=== PATIENT | male | born 1970 | race Hispanic/Latino ===

== ENCOUNTER 2017-11-26 12:12 | Inpatient (IN) | payer OTHER ==
[~2017-11-26] VITALS: Ht 170.2 cm; Wt 89.8 kg
--- NOTE | 2017-11-26 12:34 | ED GENERAL ADULT ---
History of Present Illness General Chief Complaint: General Adult Stated Complaint: ? DIABETES/WAKNESS Source: patient, family, old records Exam Limitations: no limitations Vital Signs & Intake/Output Vital Signs & Intake/Output Vital Signs Date Time Temp Pulse Resp B/P B/P Pulse O2 O2 Flow FiO2 Mean Ox Delivery Rate 11/26 1342 107 18 148/87 95 Room Air 11/26 1251 Room Air 11/26 1221 98.9 125 16 142/89 95 Room Air Allergies Coded Allergies: No Known Allergies (11/26/17) Reconcile Medications Amlodipine Besylate 5 MG TABLET 1 TAB PO QAM BP (Reported) Atorvastatin Calcium 10 MG TABLET 1 TAB PO QPM CHOLESTEROL (Reported) Hydrochlorothiazide 12.5 MG TABLET 1 TAB PO DAILY DIURETIC (Reported) Losartan Potassium 50 MG TABLET 1 TAB PO QAM BP (Reported) Metformin HCl 500 MG TABLET 1 TAB PO BID DM (Reported) Triage Note: PT HAS BEEN FEELIN WEAK AND URINATING A LOT. PT IS DIABETIC AND HAS BEEN TAKING HIS MEDS. PT IS ONLY PO MEDS. PT STATES HE DOES NOT CHECK HIS SUGARS. Triage Nurses Notes Reviewed? yes HPI: Patient presents with a weeklong history of increasing weakness and fatigue in the setting of polyuria and polydipsia. Patient is a diabetic but does not have a glucometer at home. Patient states he has been taking his medications. Patient states he has no appetite but does feel thirsty all of the time. Patient denies any chest pain. Patient states that he is now getting lightheaded when he is up walking around. He denies any room spinning dizziness. There is no nausea or vomiting. There are no fevers or chills. Past History Travel History Traveled to [place] past 21 day No Medical History Any Pertinent Medical History? see below for history Cardiovascular: hypertension Endocrine: diabetes Surgical History Surgical History: non-contributory Psychosocial History What is your primary language Korean Tobacco Use: Never used ETOH Use: denies use Illicit Drug Use: denies illicit drug use Family History Hx Contributory? No Review of Systems Review of Systems Constitutional: Reports: see HPI, weakness. EENTM: Reports: no symptoms. Respiratory: Reports: no symptoms. Cardiovascular: Reports: no symptoms. GI: Reports: no symptoms. Genitourinary: Reports: see HPI, frequency. Musculoskeletal: Reports: no symptoms. Skin: Reports: no symptoms. Neurological/Psychological: Reports: no symptoms. Hematologic/Endocrine: Reports: no symptoms. Immunologic/Allergic: Reports: no symptoms. All Other Systems: Reviewed and Negative Physical Exam Physical Exam General Appearance: well developed/nourished, alert, awake, anxious, moderate distress Head: atraumatic, normal appearance Eyes: Bilateral: PERRL, EOMI. Ears, Nose, Throat: normal pharynx, DRY MUCOSA Neck: normal inspection, supple, full range of motion Respiratory: normal breath sounds, chest non-tender, no respiratory distress, lungs clear Cardiovascular: regular rate/rhythm, normal peripheral pulses Gastrointestinal: normal bowel sounds, soft, non-tender, no organomegaly Back: normal inspection, normal range of motion Extremities: normal inspection, normal capillary refill, normal range of motion, no edema Neurologic/Psych: no motor/sensory deficits, awake, alert, oriented x 3, normal gait, normal mood/affect Skin: intact, normal color, warm/dry Core Measures ACS in differential dx? No CVA/TIA Diagnosis: No Sepsis Present: No Sepsis Focused Exam Completed? No Progress Differential Diagnoses I considered the following diagnoses in my evaluation of the patient: [ Hyperglycemia, dehydration, electrolyte abnormality] Plan of Care: Orders Procedure Date/time Status Heart Healthy Diet 11/26 D Active LACTIC ACID 11/26 1521 Active ED Holding Orders 11/26 1355 Active Admit to inpatient 11/26 1355 Active Vital Signs 11/26 1355 Active Code Status 11/26 1355 Active SERUM OSMOLALITY 11/26 1241 Complete ACETONE 11/26 1241 Complete MIXED VENOUS BLOOD GAS (GEN) 11/26 1223 Complete FingerStick- Glucose 11/26 1221 Active URINALYSIS 11/26 1221 Complete TROPONIN LEVEL 11/26 1221 Complete LACTIC ACID 11/26 1221 Complete COMPREHENSIVE METABOLIC PANEL 11/26 1221 Complete CBC WITHOUT DIFFERENTIAL 11/26 1221 Complete EKG 11/26 1221 Active Current Medications Sig/Reji Start time Last Medication Dose Stop Time Status Admin Sodium Chloride 1,000 ML BOLUS ONE 11/26 1400 AC (Normal Saline 0.9%) 11/26 1459 Sodium Chloride 1,000 ML BOLUS ONE 11/26 1345 AC 11/26 (Normal Saline 0.9%) 11/26 1444 1355 Laboratory Tests 11/26/17 1242: Bicarbonate Actual 26, Mixed VBG pH 7.34, Mixed VBG pCO2 49, Mixed VBG O2 Saturation 44, Carboxyhemoglobin 1.1 L, O2 Concentration % RA, Phlebotomy Draw Site LAC 11/26/17 1241: Serum Osmolality Cancelled, Acetone Level Cancelled 11/26/17 1241: Anion Gap 21 H, Estimated GFR > 60, BUN/Creatinine Ratio 17.3, Glucose 1221 *H, Serum Osmolality 353 H, Lactic Acid 4.4 H, Calcium 10.4 H, Total Bilirubin 0.5, AST 21, ALT 47, Alkaline Phosphatase 202 H, Troponin I < 0.01, Total Protein 7.6, Albumin 4.5, Globulin 3.1, Albumin/Globulin Ratio 1.5, Acetone Level NEGATIVE, Urine Color YEL, Urine Clarity CLEAR, Urine pH 6.0, Ur Specific [place] <= 1.005, Urine Protein NEG, Urine Ketones NEG, Urine Nitrite NEG, Urine Bilirubin NEG, Urine Urobilinogen 0.2, Ur Leukocyte Esterase NEG, Ur Microscopic EXAM NOT REQUIRED, Urine Hemoglobin NEG, Urine Glucose >=1000 H 11/26/17 1221: CBC w Diff NO MAN DIFF REQ, RBC 5.65, MCV 83.8, MCH 27.0, MCHC 32.2 L, RDW 13.8 , MPV 10.2, Gran % 84.8 H, Lymphocytes % 13.2 L, Monocytes % 1.8, Eosinophils % 0.2, Basophils % 0, Absolute Granulocytes 10.2 H, Absolute Lymphocytes 1.6, Absolute Monocytes 0.2, Absolute Eosinophils 0, Absolute Basophils 0 Initial ED EKG: SINUS TACHYCARDIA, NONSPECIFIC st-t CHANGES. Prior EKG: unchanged Departure Departure Disposition: STILL A PATIENT Condition: Stable Clinical Impression Primary Impression: Hyperglycemia Secondary Impressions: Lactic acidosis Departure Forms: Customer Survey General Discharge Information Admission Note Spoke With: Jael RIBEIRO,Amir Documentation of Exam: Documentation of any treatments & extenuating circumstances including Concerns Regarding Discharge (functional status, medication knowledge or non-compliance, living conditions, etc.) that warrant an admission rather than observation: [IV FLUIDS, ENDOCRINE CONSULT, HOLD METFORMIN, INSULIN] Critical Care Note Critical Care Note Critical Care Time: mins: (45 MIN)
[2017-11-26 13:15] LABS: ABSOLUTE BASOPHIL COUNT 0 /CUMM (0.0-0.2); ABSOLUTE EOSINOPHIL COUNT 0 /CUMM (0.0-0.7); ABSOLUTE GRANULOCYTE CT 10.2 /CUMM (1.4-6.5); ABSOLUTE LYMPH COUNT 1.6 /CUMM (1.2-3.4); ABSOLUTE MONOCYTE COUNT 0.2 /CUMM (0.10-0.60); BASOPHIL % 0 % (0.0-2.0); EOSINOPHIL % 0.2 % (0-5); GRANULOCYTE % 84.8 % (42.2-75.2); HEMATOCRIT 47.3 % (42-52); MEAN CORPUSCULAR HGB CONC 32.2 G/DL (33.0-37.0); MEAN CORPUSCULAR VOLUME 83.8 FL (80.0-94.0); MEAN PLATELET VOLUME 10.2 FL (7.4-10.4); PLATELET COUNT 417 /CUMM (130-400); RBC DISTRIBUTION WIDTH 13.8 % (11.5-14.5); RED BLOOD CELL CT 5.65 /CUMM (4.70-6.10); WHITE BLOOD CELL COUNT 12.1 /CUMM (4.8-10.8)
[2017-11-26] MEDS ORDERED: LOSARTAN POTASS50 M1 PO (13:51)
[2017-11-26] MEDS ORDERED: ATORVASTATIN CA10 M1 PO (13:51)
[2017-11-26] MEDS ORDERED: AMLODIPINE BESYL5 M1 PO (13:51)
[2017-11-26] MEDS ORDERED: HYDROCHLOROTH12.5 M2 PO (13:51)
[2017-11-26] MEDS ORDERED: METFORMIN HCL500 M3 PO (13:51)
--- NOTE | 2017-11-26 14:10 | History & Physical ---
DannyMarci Jesse Richard 11/26/17 1409: General Information and HPI MD Statement: I have seen and personally examined PRASAD MORALES and documented this H& P. The patient is a 47 year old M who presented with a patient stated chief complaint of [HYPERGLYCEMIA]. Source of Information: patient, old records Exam Limitations: no limitations History of Present Illness: Mr. Neena Davis is a 47yo M w/ PMH of HTN, T2DM on metformin 500 BID only presented w/ CC of increasing weakness/lightheadedness and fatigue, and polyuria /polydipsia x 1 week. He had no glucometer at home, however stated being compliant with meds. Patient had increasing dizziness especially the day before ER, and also some blurry vision to objects at far distance without previous episodes like this. Along with polyuria/polydipsia patient also felt increasing thirsty over the day. Appetite has been low for the past week. Weight has changed from 225lbs to 198lbs within one week. He is seeing Dr. Langford as PCP and does not see any other doctor. -Baselines: No exercise intolerance. 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 During our clinical interaction, patient denied recent travel/sick contacts, fever/diaphoresis/night sweat/cough/SOB/Chest Pain/Palpitation/Abdominal pain/ bowel movement abnormality, or other skin/musculoskeletal/neurological/mood disorders, or dietary/appetite change. -Smoking: Denied -Alcohol: Denied -Rec Drugs: Denied Allergies/Medications Allergies: Coded Allergies: No Known Allergies (11/26/17) Home Med list Amlodipine Besylate 5 MG TABLET 1 TAB PO QAM BP (Reported) Atorvastatin Calcium 10 MG TABLET 1 TAB PO QPM CHOLESTEROL (Reported) Hydrochlorothiazide 12.5 MG TABLET 1 TAB PO DAILY DIURETIC (Reported) Losartan Potassium 50 MG TABLET 1 TAB PO QAM BP (Reported) Metformin HCl 500 MG TABLET 1 TAB PO BID DM (Reported) Past History Travel History Traveled to [place] past 21 day No Medical History Cardiovascular: hypertension Endocrine: diabetes Surgical History Surgical History: non-contributory Past Family/Social History Psychosocial History ETOH Use: denies use Illicit Drug Use: denies illicit drug use Review of Systems Review of Systems Constitutional: Reports: see HPI. Exam & Diagnostic Data Last 24 Hrs of Vital Signs/I&O Vital Signs Date Time Temp Pulse Resp B/P B/P Pulse O2 O2 Flow FiO2 Mean Ox Delivery Rate 11/26 1342 107 18 148/87 95 Room Air 11/26 1251 Room Air 11/26 1221 98.9 125 16 142/89 95 Room Air Intake & Output 11/26 1600 11/26 0800 11/26 0000 Intake Total Output Total Balance Patient 88.451 kg Weight Weight Reported by Patient Measurement Method Physical Exam General Appearance Alert, Oriented X3, Cooperative, No Acute Distress Skin No Rashes, No Breakdown, No Significant Lesion Skin Temp/Moisture Exam: Warm/Dry Sepsis Skin Exam (color): Normal for Ethnicity HEENT Atraumatic, PERRLA, EOMI Neck Supple, No JVD, No thryomegaly Cardiovascular Regular Rate, Tachycardia Lungs Clear to Auscultation, Normal Air Movement Abdomen Normal Bowel Sounds Neurological Normal Speech, Strength at 5/5 X4 Ext, Normal Tone, Sensation Intact, microfilament test grossly intact BLE Extremities No Clubbing, No Cyanosis, No Edema, Normal Pulses Last 24 Hrs of Labs/Iván: Laboratory Tests 11/26/17 1242: Bicarbonate Actual 26, Mixed VBG pH 7.34, Mixed VBG pCO2 49, Mixed VBG O2 Saturation 44, Carboxyhemoglobin 1.1 L, O2 Concentration % RA, Phlebotomy Draw Site LAC 11/26/17 1241: Serum Osmolality Cancelled, Acetone Level Cancelled 11/26/17 1241: Anion Gap 21 H, Estimated GFR > 60, BUN/Creatinine Ratio 17.3, Glucose 1221 *H, Serum Osmolality 353 H, Lactic Acid 4.4 H, Calcium 10.4 H, Total Bilirubin 0.5, AST 21, ALT 47, Alkaline Phosphatase 202 H, Troponin I < 0.01, Total Protein 7.6, Albumin 4.5, Globulin 3.1, Albumin/Globulin Ratio 1.5, Acetone Level NEGATIVE, Urine Color YEL, Urine Clarity CLEAR, Urine pH 6.0, Ur Specific [employer] <= 1.005, Urine Protein NEG, Urine Ketones NEG, Urine Nitrite NEG, Urine Bilirubin NEG, Urine Urobilinogen 0.2, Ur Leukocyte Esterase NEG, Ur Microscopic EXAM NOT REQUIRED, Urine Hemoglobin NEG, Urine Glucose >=1000 H 11/26/17 1221: CBC w Diff NO MAN DIFF REQ, RBC 5.65, MCV 83.8, MCH 27.0, MCHC 32.2 L, RDW 13.8 , MPV 10.2, Gran % 84.8 H, Lymphocytes % 13.2 L, Monocytes % 1.8, Eosinophils % 0.2, Basophils % 0, Absolute Granulocytes 10.2 H, Absolute Lymphocytes 1.6, Absolute Monocytes 0.2, Absolute Eosinophils 0, Absolute Basophils 0 Assessment/Plan Assessment: Mr. Neena Davis is a 47yo M w/ PMH of HTN, diabetes presented w/ CC of increasing weakness/lightheadedness and fatigue, and polyuria/polydipsia x 1 week. He presented with a clinical picture of HHS including serum glucose >1000, and also hyperosmolarity >320, and negative acetone, with mild anion gap of 21. No signs of DKA/confusion/acute distress. His sinus tachycardia might be from severe dehydration, and leukocytosis/thrombocytosis could be from hemiconcentration On admission, Vitals: Stable afebrile, tachycardia 125->107m RR 18, BP 140/87, 95% room air -CBC: Mild leukocytosis 12.1, H/H stable, PLT 417, -BMP: Mild hyponatremia 133, glucose 1221, serum osmole 353, lactic acid 4.4, calcium 10.4, alk phos 202 -UA/Microbiology: Unremarkable except urine glucose >1000 -EKG: Sinus tachycardia w/o significant ST-T abnormalities. -Last Echo: none in our system -Interventions in ER: NS bolus x 3, Novolin R 10U x 1 Problem list/Assessment/Hospital Course: #HHS likely 2/2 Hyperglycemia with underlying diabetes #Leukocytosis/thrombocytopenia probably due to hemoconcentration #Hypertonicity 2/2 hyperglycemia, resolving #Lactic acidosis, likely 2/2 dehydration, resolved #Elevated alk phos #PMH of hypertension, T2DM - Admit to general medicine floor - Vitals per protocol, monitor I&O per protocol. -Would continue bolus 2 more bag of IV NS, and then continous IVF per serum osmolarity normalized. -Lactic acidosis resolved to 1.4. -recheck BEP at 2200. -Patient's glucose decreased to 500+ after one dose of novolin R. will recheck as well 2200. DVT prophylaxis Pharm PPX + ALPS Diabetic diet CC1 IV Access: Peripheral IV Full Code As Ranked By This Provider Problem List: 1. Hyperglycemia Core Measures/Misc (01/22) Acute Coronary Syndrome ACS Diagnosis: No Congestive Heart Failure Congestive Heart Failure Diagnosis No Cerebrovascular Accident CVA/TIA Diagnosis: No VTE (View Protocol) VTE Risk Factors Age>40 No Mechanical VTE Prophylaxis d/t N/A MechProphylax Ordered No VTE Pharm Prophylaxis d/t NA PharmProphylax ordered Sepsis (View protocol) Sepsis Present: No If YES complete Sepsis Event Note If YES complete Sepsis Event Note Jael RIBEIRO,Amir 11/26/17 1615: Core Measures/Misc (01/22) Sepsis (View protocol) If YES complete Sepsis Event Note If YES complete Sepsis Event Note Attending MD Review Statement Attending Statement Attending MD Statement: examined this patient, discuss w/resident/PA/TRAVEL CLERK, agreed w/resident/PA/TRAVEL CLERK, discussed with family, reviewed EMR data (avail) Attending Assessment/Plan: PRASAD MORALES Mr. Neena Davis is a 47yo M w/ PMH of HTN, diabetes a/w increasing weakness/ lightheadedness and fatigue, and polyuria/polydipsia x 1 week. Found to have hyperglycemia and electrolytes abnormalities --IVF, Insulin SQ --replete lytes as needed
--- NOTE | 2017-11-26 16:13 | Admission Certification ---
Admission Certification Certification Statement - As attending physician, I certify that at the time of - admission, based on clinical presentation, severity of - symptoms, need for further diagnostic testing and - therapeutic interventions, and risk of adverse outcomes - without in-hospital treatment, in my clinical assessment, - this patient requires an acute hospital stay for a minimum - of two nights or longer. I have also considered psychsocial - factors such as support system, advanced age, financial - issues, cognitive issues, and failed out-patient treatments, - past re-admission history, safety of patient, and lack of - compliance as applicable. Specific rationale supporting this admission is: hyperosmolar hyperglycemia
[2017-11-26 18:35] VITALS: BP 136/68
[2017-11-26 23:00] VITALS: BP 142/66
[2017-11-27 06:31] VITALS: BP 134/94
[2017-11-27 07:57] LABS: ABSOLUTE BASOPHIL COUNT 0.1 /CUMM (0.0-0.2); ABSOLUTE EOSINOPHIL COUNT 0.1 /CUMM (0.0-0.7); ABSOLUTE GRANULOCYTE CT 5.2 /CUMM (1.4-6.5); ABSOLUTE LYMPH COUNT 3.4 /CUMM (1.2-3.4); ABSOLUTE MONOCYTE COUNT 0.3 /CUMM (0.10-0.60); BASOPHIL % 0.6 % (0.0-2.0); EOSINOPHIL % 1.3 % (0-5); GRANULOCYTE % 57.2 % (42.2-75.2); MEAN CORPUSCULAR HGB 27.1 PG (27.0-31.0); MEAN CORPUSCULAR HGB CONC 33.4 G/DL (33.0-37.0); MEAN CORPUSCULAR VOLUME 81.3 FL (80.0-94.0); MEAN PLATELET VOLUME 9.8 FL (7.4-10.4); PLATELET COUNT 365 /CUMM (130-400); RBC DISTRIBUTION WIDTH 13.6 % (11.5-14.5); RED BLOOD CELL CT 4.82 /CUMM (4.70-6.10); WHITE BLOOD CELL COUNT 9.2 /CUMM (4.8-10.8)
--- NOTE | 2017-11-27 08:16 | PN- Housestaff ---
See Addendum Subjective Follow-up For: HHS Subjective: Patient seen and examined at bedside. Pt denies complaints. Mildly was barrier present, patient speaks some Guinean, does understand Guinean, but prefers Persian. Per nurse, patient has been urinating overnight, and is taken in for pitchers of water. Denies fevers/chills/night sweats/chest pain/abdominal pain/ urinary symptoms/lower extremity edema Review of Systems Constitutional: Reports: see HPI. Objective Last 24 Hrs of Vital Signs/I&O Vital Signs Date Time Temp Pulse Resp B/P B/P Pulse O2 O2 Flow FiO2 Mean Ox Delivery Rate 11/27 0631 97.9 87 20 134/94 93 11/26 2300 99.5 118 18 142/66 98 Room Air 11/26 1835 99.7 120 18 136/68 98 Room Air 11/26 1727 113 18 139/85 95 Room Air 11/26 1625 102 18 144/81 96 Room Air 11/26 1458 114 18 169/94 97 Room Air 11/26 1342 107 18 148/87 95 Room Air 11/26 1251 Room Air 11/26 1221 98.9 125 16 142/89 95 Room Air Intake & Output 11/27 1600 11/27 0800 11/27 0000 Intake Total 130 600 Output Total 1300 Balance 130 -700 Intake, IV 10 600 Intake, Oral 120 Output, Urine 1300 Patient 198 lb Weight Weight Reported by Patient Measurement Method Physical Exam General Appearance: Alert, Oriented X3, Cooperative, No Acute Distress Skin: No Rashes Skin Temp/Moisture Exam: Warm/Dry Cardiovascular: Regular Rate, Normal S1, Normal S2 Lungs: Clear to Auscultation, Normal Air Movement Abdomen: Soft, No Tenderness Neurological: Normal Speech, Sensation Intact Extremities: No Edema, Normal Pulses Current Medications: Current Medications Sig/Reji Start time Last Medication Dose Route Stop Time Status Admin Acetaminophen 650 MG Q6P PRN 11/26 1545 AC PO Acetaminophen 0 .STK-MED ONE 11/26 1235 DC PO Amlodipine Besylate 5 MG QAM 11/27 0900 AC 11/27 PO 0826 Atorvastatin Calcium 10 MG QPM 11/26 2100 AC 11/26 PO 2134 Enoxaparin Sodium 40 MG DAILY 11/27 0900 CAN SC Heparin Sodium 5,000 UNIT Q8 11/26 2200 AC 11/27 (Porcine) SC 0501 Insulin Aspart 0 TIDAC/HS 11/27 0855 AC SC Insulin Aspart 0 AT BEDTIME 11/26 2100 AC 11/26 SC 2133 Insulin Aspart 0 TIDAC 11/26 1700 DC 11/27 SC 0826 Insulin Detemir 15 UNITS BID 11/27 0900 AC SC Insulin Human Regular 10 UNITS ONCE ONE 11/26 1530 DC 11/26 SC 11/26 1531 1525 Losartan Potassium 50 MG QAM 11/27 0900 AC 11/27 PO 0826 Metformin HCl 1,000 MG 0800,1700 11/27 0900 AC 11/27 PO 1058 Potassium Chloride 40 MEQ BID 11/27 0700 AC 11/27 PO 0826 Promethazine HCl 25 MG Q4P PRN 11/26 1700 AC PO 12/03 1659 Sodium Chloride 1,000 ML Q6H 11/26 1700 DC 11/26 IV 11/27 0459 2133 Sodium Chloride 1,000 ML BOLUS ONE 11/26 1600 DC 11/26 IV 11/26 1659 1640 Sodium Chloride 1,000 ML BOLUS ONE 11/26 1600 DC 11/26 IV 11/26 1659 1552 Sodium Chloride 1,000 ML BOLUS ONE 11/26 1400 DC 11/26 IV 11/26 1459 1502 Sodium Chloride 1,000 ML BOLUS ONE 11/26 1345 DC 11/26 IV 11/26 1444 1355 Sodium Chloride 1,000 ML BOLUS ONE 11/26 1230 DC 11/26 IV 11/26 1329 1251 Last 24 Hrs of Lab/Iván Results Last 24 Hrs of Labs/Mics: Laboratory Tests 11/27/17 0620: Anion Gap 12, Estimated GFR > 60, BUN/Creatinine Ratio 17.1, Serum Osmolality Pending, CBC w Diff NO MAN DIFF REQ, RBC 4.82, MCV 81.3, MCH 27.1, MCHC 33.4, RDW 13.6, MPV 9.8, Gran % 57.2, Lymphocytes % 37.4, Monocytes % 3.5, Eosinophils % 1.3, Basophils % 0.6, Absolute Granulocytes 5.2, Absolute Lymphocytes 3.4, Absolute Monocytes 0.3, Absolute Eosinophils 0.1, Absolute Basophils 0.1 11/26/17 2301: Anion Gap 12, Estimated GFR > 60, BUN/Creatinine Ratio 20.0, Glucose 303 H, Serum Osmolality 311 H 11/26/17 1546: Lactic Acid 1.7 11/26/17 1546: Anion Gap 16, Estimated GFR > 60, BUN/Creatinine Ratio 17.8, Glucose 579 *H, Serum Osmolality 335 H 11/26/17 1242: Bicarbonate Actual 26, Mixed VBG pH 7.34, Mixed VBG pCO2 49, Mixed VBG O2 Saturation 44, Carboxyhemoglobin 1.1 L, O2 Concentration % RA, Phlebotomy Draw Site LAC 11/26/17 1241: Serum Osmolality Cancelled, Acetone Level Cancelled 11/26/17 1241: Anion Gap 21 H, Estimated GFR > 60, BUN/Creatinine Ratio 17.3, Glucose 1221 *H, Hemoglobin A1c 10.1 H, Serum Osmolality 353 H, Lactic Acid 4.4 H, Calcium 10.4 H, Total Bilirubin 0.5, AST 21, ALT 47, Alkaline Phosphatase 202 H, Troponin I < 0.01, Total Protein 7.6, Albumin 4.5, Globulin 3.1, Albumin/ Globulin Ratio 1.5, Acetone Level NEGATIVE, Urine Color YEL, Urine Clarity CLEAR , Urine pH 6.0, Ur Specific [place] <= 1.005, Urine Protein NEG, Urine Ketones NEG, Urine Nitrite NEG, Urine Bilirubin NEG, Urine Urobilinogen 0.2, Ur Leukocyte Esterase NEG, Ur Microscopic EXAM NOT REQUIRED, Urine Hemoglobin NEG, Urine Glucose >=1000 H 11/26/17 1221: CBC w Diff NO MAN DIFF REQ, RBC 5.65, MCV 83.8, MCH 27.0, MCHC 32.2 L, RDW 13.8 , MPV 10.2, Gran % 84.8 H, Lymphocytes % 13.2 L, Monocytes % 1.8, Eosinophils % 0.2, Basophils % 0, Absolute Granulocytes 10.2 H, Absolute Lymphocytes 1.6, Absolute Monocytes 0.2, Absolute Eosinophils 0, Absolute Basophils 0 Assessment/Plan Assessment: Mr. Neena Davis is a 47yo M w/ PMH of HTN, T2 diabetes on Metformin 500mg BID presented w/ CC of increasing weakness/lightheadedness and fatigue, and polyuria /polydipsia x 1 week. Was found to have serum glucose greater than 1000, osmolality of >320, negative acetone, mild anion gap, is admitted for management of hyperosmolar hyperglycemic syndrome. #HHS Levemir 15 units twice daily, NovoLog sliding scale managed #Hypertension DVT prophylaxis IV access Tolerating cc 1 diet Full code Dispositionto home Problem List: 1. Hyperglycemia Pain Ratin Pain Location: NA Pain Goal: Pain 4 or less Pain Plan: [facility] [employer] Labs & Rationales: BEP
[2017-11-27 08:30] LABS: HEMATOCRIT 39.2 % (42-52)
--- NOTE | 2017-11-27 13:17 | Cons- Endocrinology ---
General Information and HPI Consulting Request Date of Consult: 11/27/17 Requested By: medical team Reason for Consult: management of uncontrolled DM type 2 Source of Information: patient, old records Exam Limitations: language barrier History of Present Illness: Mr. Neena Davis is a 47yo M w/ PMH significant for HTN and diabetes type 2. He was on metformin 500mg twice a day. He presented w/ CC of increasing weakness/ lightheadedness and fatigue, and polyuria/polydipsia x 1 week. He doesn't check glucose level at home as he didn't have a glucometer. In ER, blood work showed glucose 1221, osmolality 353, acetone negative, lactic acid 4.4. He received IVF and insulin sc regimen. His FSGs were > 500, then 500, 371, 315 and 326. Repeat blood work this morning showed glucose 303, K 3.4, sodium 144 and osmolality 311. Clinically he has been feeling better. Allergies/Medications Allergies: Coded Allergies: No Known Allergies (11/26/17) Home Med List: Amlodipine Besylate 5 MG TABLET 1 TAB PO QAM BP (Reported) Atorvastatin Calcium 10 MG TABLET 1 TAB PO QPM CHOLESTEROL (Reported) Hydrochlorothiazide 12.5 MG TABLET 1 TAB PO DAILY DIURETIC (Reported) Losartan Potassium 50 MG TABLET 1 TAB PO QAM BP (Reported) Metformin HCl 500 MG TABLET 1 TAB PO BID DM (Reported) Review of Systems Review of Systems Constitutional: Reports: see HPI. Cardiovascular: Denies: chest pain. Respiratory: Denies: short of breath. GI: Denies: abdominal pain. Genitourinary: Denies: discharge. Hematologic/Endocrine: Reports: polyuria, polydipsia. Past History Travel History Traveled to [place] past 21 day No Medical History Blood Transfusion Hx: No EENT: NONE Cardiovascular: hypertension Respiratory: NONE Gastrointestinal: NONE Hepatic: NONE Renal: NONE Musculoskeletal: NONE Psychiatric: NONE Endocrine: diabetes Blood Disorders: NONE Cancer(s): NONE BOSOM PRESSER/Reproductive: NONE Surgical History Surgical History: non-contributory Psychosocial History Where Do You Live? Home Services at Home: None Smoking Status: Never Smoked ETOH Use: denies use Illicit Drug Use: denies illicit drug use Exam & Diagnostic Data Last 24 Hrs of Vital Signs/I&O Vital Signs Date Time Temp Pulse Resp B/P B/P Pulse O2 O2 Flow FiO2 Mean Ox Delivery Rate 11/27 0631 97.9 87 20 134/94 93 11/26 2300 99.5 118 18 142/66 98 Room Air 11/26 1835 99.7 120 18 136/68 98 Room Air 11/26 1727 113 18 139/85 95 Room Air 11/26 1625 102 18 144/81 96 Room Air 11/26 1458 114 18 169/94 97 Room Air 11/26 1342 107 18 148/87 95 Room Air Intake & Output 11/27 1600 11/27 0800 11/27 0000 Intake Total 130 600 Output Total 1300 Balance 130 -700 Intake, IV 10 600 Intake, Oral 120 Output, Urine 1300 Patient 198 lb Weight Weight Reported by Patient Measurement Method Physical Exam General Appearance: no apparent distress Neck: normal inspection Respiratory: normal breath sounds Cardiovascular: regular rate/rhythm Gastrointestinal: soft, non-tender Extremities: no edema Labs/Iván Results: Laboratory Tests 11/27 11/26 11/26 11/26 0620 2301 1546 1546 Chemistry Sodium (137 - 145 mmol/L) 143 144 147 H Potassium (3.5 - 5.1 mmol/L) 4.0 3.4 L 4.6 Chloride (98 - 107 mmol/L) 106 106 105 Carbon Dioxide (22 - 30 mmol/L) 25 25 26 Anion Gap (5 - 16) 12 12 16 BUN (9 - 20 mg/dL) 12 14 16 Creatinine (0.7 - 1.2 mg/dL) 0.7 0.7 0.9 Estimated GFR (>60 ml/min) > 60 > 60 > 60 BUN/Creatinine Ratio (7 - 25 %) 17.1 20.0 17.8 Glucose (65 - 99 mg/dL) 303 H 579 *H Serum Osmolality (285 - 295 MOSM/KG) 314 H 311 H 335 H Lactic Acid (0.7 - 2.1 mmol/L) 1.7 Hematology CBC w Diff NO MAN DIFF REQ WBC (4.8 - 10.8 /CUMM) 9.2 RBC (4.70 - 6.10 /CUMM) 4.82 Hgb (14.0 - 18.0 G/DL) 13.1 L Hct (42 - 52 %) 39.2 L MCV (80.0 - 94.0 FL) 81.3 MCH (27.0 - 31.0 PG) 27.1 MCHC (33.0 - 37.0 G/DL) 33.4 RDW (11.5 - 14.5 %) 13.6 Plt Count (130 - 400 /CUMM) 365 MPV (7.4 - 10.4 FL) 9.8 Gran % (42.2 - 75.2 %) 57.2 Lymphocytes % (20.5 - 51.1 %) 37.4 Monocytes % (1.7 - 9.3 %) 3.5 Eosinophils % (0 - 5 %) 1.3 Basophils % (0.0 - 2.0 %) 0.6 Absolute Granulocytes (1.4 - 6.5 /CUMM) 5.2 Absolute Lymphocytes (1.2 - 3.4 /CUMM) 3.4 Absolute Monocytes (0.10 - 0.60 /CUMM) 0.3 Absolute Eosinophils (0.0 - 0.7 /CUMM) 0.1 Absolute Basophils (0.0 - 0.2 /CUMM) 0.1 Assessment/Plan Assessment/Plan 47yo M w/ PMH significant for HTN and diabetes type 2. He was on metformin 500mg twice a day, presented w/ CC of increasing weakness/lightheadedness and fatigue , and polyuria/polydipsia x 1 week. He was admitted for hyperosmolar hyperglycemic state. After he was treated with IVF and insulin, his glucose levels were improving. Plan: 1. nutrition consult; 2. glucometer teaching and insulin injection teaching; 3. start Levemir 15 units twice a day; 4. start metformin 1000 mg twice a day; 5. adjust Novolog coverage before meals; detail see the insulin order sheet; 6. continue the current Novolog coverage at bedtime; 7. monitor FSGs. will follow. Inpatient Diabetes Orders Before Each Meal: Bolus Insulin: Novolog < 80 mg/dl: no coverage 80-100 mg/dl: 6 units 101-120 mg/dl: 6 units 121-150 mg/dl: 6 units 151-200 mg/dl: 8 units 201-250 mg/dl: 10 units 251-300 mg/dl: 12 units 301-350 mg/dl: 14 units 351-400 mg/dl: 16 units > 400 mg/dl: 18 units Consult Acknowledgment - Thank you for your consult request.
--- NOTE | 2017-11-27 13:45 | PN- Student ---
NnamdiFredy 11/27/17 1259: Subjective Subjective: HPI: 47 y/o male with a history of Hypertension, Type 2 Diabetes Mellitus presented with increasing weakness/lightheadedness and fatigue, and polyuria/polydipsia x 1 week. Patient found to have serum glucose greater than 1000mg/dL, osmolality of >320mOsm/kg, negative acetone, and mild anion gap. Weight has decreased 27lbs, from 225lbs to 198lbs in one week. Patient was admitted for management of hyperosmolar hyperglycemic syndrome. Patient was observed at bedside by both myself and Dr. Pabon. Patient offers no complaints at this time. Denies fevers, chills, nightsweats, and fatigue. Denies chest pain, difficulty breathing, abdominal pain, and urinary symptoms. Current blood sugar level is 303mg/dL and Osmolality is normalizing, currently 314. Hemoglobin A1c is 10.1. Objective Objective: Vitals: Temp: 97.9F; Oral BP: 134/94mmHg HR: 87bpm RR: 20 br/min O2: 93% on Room air General: Patient was alert, cooperative, and in no acute distress throughout the examination. Upon general inspection, there was no erythema, ecchymoses, or signs of trauma. No central or peripheral edema noted. HEENT: Normocephalic. PERRLA. No tracheal deviation noted Lungs: Clear to ausculatation by anterior and lateral approaches, bilaterally. Heart: Normal heart sounds heard with the diaphragm in the Aortic, Pulmonic, Erbs, Tricuspid, and Mitral areas. No murmurs, rubs, or gallops noted. No edema noted. Abdomen: Upon visual inspection, no signs of distention or trauma. Normoactive bowel sounds heard in all four quadrants with the diaphragm with sounds occuring every 5-7 seconds. Abdomen non tender upon palpation. MSK: ROM in tact in all upper and lower extremities. Strength 5/5 in upper extremities in both flexion and extension. Strength 5/5 in lower extremities in both flexion and extension. Neuro: CN II-XII in tact Results Results: Laboratory Tests 11/27/17 0620: Anion Gap 12, Estimated GFR > 60, BUN/Creatinine Ratio 17.1, Serum Osmolality 314 H, CBC w Diff NO MAN DIFF REQ, RBC 4.82, MCV 81.3, MCH 27.1, MCHC 33.4, RDW 13.6, MPV 9.8, Gran % 57.2, Lymphocytes % 37.4, Monocytes % 3.5, Eosinophils % 1.3, Basophils % 0.6, Absolute Granulocytes 5.2, Absolute Lymphocytes 3.4, Absolute Monocytes 0.3, Absolute Eosinophils 0.1, Absolute Basophils 0.1 11/26/17 2301: Anion Gap 12, Estimated GFR > 60, BUN/Creatinine Ratio 20.0, Glucose 303 H, Serum Osmolality 311 H 11/26/17 1546: Lactic Acid 1.7 11/26/17 1546: Anion Gap 16, Estimated GFR > 60, BUN/Creatinine Ratio 17.8, Glucose 579 *H, Serum Osmolality 335 H 11/26/17 1242: Bicarbonate Actual 26, Mixed VBG pH 7.34, Mixed VBG pCO2 49, Mixed VBG O2 Saturation 44, Carboxyhemoglobin 1.1 L, O2 Concentration % RA, Phlebotomy Draw Site LAC 11/26/17 1241: Serum Osmolality Cancelled, Acetone Level Cancelled 11/26/17 1241: Anion Gap 21 H, Estimated GFR > 60, BUN/Creatinine Ratio 17.3, Glucose 1221 *H, Hemoglobin A1c 10.1 H, Serum Osmolality 353 H, Lactic Acid 4.4 H, Calcium 10.4 H, Total Bilirubin 0.5, AST 21, ALT 47, Alkaline Phosphatase 202 H, Troponin I < 0.01, Total Protein 7.6, Albumin 4.5, Globulin 3.1, Albumin/ Globulin Ratio 1.5, Acetone Level NEGATIVE, Urine Color YEL, Urine Clarity CLEAR , Urine pH 6.0, Ur Specific [place] <= 1.005, Urine Protein NEG, Urine Ketones NEG, Urine Nitrite NEG, Urine Bilirubin NEG, Urine Urobilinogen 0.2, Ur Leukocyte Esterase NEG, Ur Microscopic EXAM NOT REQUIRED, Urine Hemoglobin NEG, Urine Glucose >=1000 H 11/26/17 1221: CBC w Diff NO MAN DIFF REQ, RBC 5.65, MCV 83.8, MCH 27.0, MCHC 32.2 L, RDW 13.8 , MPV 10.2, Gran % 84.8 H, Lymphocytes % 13.2 L, Monocytes % 1.8, Eosinophils % 0.2, Basophils % 0, Absolute Granulocytes 10.2 H, Absolute Lymphocytes 1.6, Absolute Monocytes 0.2, Absolute Eosinophils 0, Absolute Basophils 0 Assessment/Plan Assessment: 47 y/o male with a history of Hypertension, Type 2 Diabetes Mellitus presented with increasing weakness/lightheadedness and fatigue, and polyuria/ polydipsia x 1 week. Patient found to have serum glucose greater than 1000mg/dL, osmolality of >320mOsm/kg, negative acetone, mild anion gap, and was admitted for management of hyperosmolar hyperglycemic syndrome. Plan: Hyperosmolar Hyperglycemic Syndrome (HHS) Fluid resuscitation - IVF: 7L infused yesterday; Currently on PO fluids Per Endocrinology consult: Metformin 1000mg BID Levemir 15 units BID Novolog sliding scale Continue K-Dur 40mEq PO BID; Potassium currently 4.0mmol/L Continue monitoring Glucose, HA1C, and Serum Osmolality levels Type 2 Diabetes Mellitus See plan for sugar control with HHS. Will likely need continuation as outpatient Continue Lipitor 10mg PO QD for Metabolic Derangement Hypertension Continue Norvasc 5mg PO QD and Losartan 50mg PO QD DVT Prophylaxis Heparin 5000 units Q8hr SC
[2017-11-27 14:49] VITALS: BP 110/58; BP 114/74
[2017-11-27 21:23] VITALS: BP 110/80
[2017-11-28 07:01] VITALS: BP 102/71
--- NOTE | 2017-11-28 08:20 | PN- Housestaff ---
Emanuel Pabon 11/28/17 0820: Subjective Follow-up For: HHS Subjective: Pt seen and evaluated at bedside. Pt denies complaints. Says he slept well last night. Pt daughter who is more fluent in [place] states that pts PCP is Dr Langford who he follows with regularly. Pt denies any fevers/chills/night sweats/chest pain/abdominal pain/urinary symptoms/LE swelling Review of Systems Constitutional: Reports: see HPI. Objective Last 24 Hrs of Vital Signs/I&O Vital Signs Date Time Temp Pulse Resp B/P B/P Pulse O2 O2 Flow FiO2 Mean Ox Delivery Rate 11/28 0701 98.0 71 18 102/71 98 11/27 2123 98.2 97 18 110/80 99 Room Air 11/27 1449 98.2 105 18 114/74 98 Room Air Intake & Output 11/28 1600 11/28 0800 11/28 0000 Intake Total 240 900 Output Total Balance 240 900 Intake, Oral 240 900 Physical Exam General Appearance: Alert, Oriented X3, Cooperative, No Acute Distress Skin: No Rashes Skin Temp/Moisture Exam: Warm/Dry Cardiovascular: Regular Rate, Normal S1, Normal S2 Lungs: Clear to Auscultation, Normal Air Movement Abdomen: Soft, No Tenderness Neurological: Strength at 5/5 X4 Ext, Sensation Intact Extremities: No Edema Current Medications: Current Medications Sig/Reji Start time Last Medication Dose Route Stop Time Status Admin Acetaminophen 650 MG Q6P PRN 11/26 1545 AC PO Amlodipine Besylate 5 MG QAM 11/27 0900 AC 11/28 PO 0811 Atorvastatin Calcium 10 MG QPM 11/26 2100 AC 11/27 PO 2148 Heparin Sodium 5,000 UNIT Q8 11/26 2200 AC 11/28 (Porcine) ID [id number] Insulin Aspart 0 TIDAC/HS 11/27 2245 AC 11/28 ID 0810 Insulin Aspart 0 TIDAC/HS 11/27 0855 DC 11/27 ID [id number] Insulin Aspart 0 AT BEDTIME 11/26 2100 DC 11/26 ID [id number] Insulin Detemir 20 UNITS BID 11/28 0900 AC 11/28 SC 0816 Insulin Detemir 15 UNITS BID 11/27 0900 DC 11/27 SC 2148 Losartan Potassium 50 MG QAM 11/27 0900 AC 11/28 PO 0810 Metformin HCl 1,000 MG 0800,1700 11/27 0900 AC 11/28 PO 0810 Potassium Chloride 40 MEQ BID 11/27 0700 AC 11/28 PO 0810 Promethazine HCl 25 MG Q4P PRN 11/26 1700 AC PO 12/03 1659 Last 24 Hrs of Lab/Iván Results Last 24 Hrs of Labs/Mics: Laboratory Tests 11/28/17 0814: Anion Gap 11, Estimated GFR > 60, BUN/Creatinine Ratio 14.3, Serum Osmolality 302 H Assessment/Plan Assessment: Mr. Neena Davis is a 47yo M w/ PMH of HTN, T2 diabetes on Metformin 500mg BID presented w/ CC of increasing weakness/lightheadedness and fatigue, and polyuria /polydipsia x 1 week. Was found to have serum glucose greater than 1000, osmolality of >320, negative acetone, mild anion gap, is admitted for management of hyperosmolar hyperglycemic syndrome. #HHS Levemir 20 units twice daily, NovoLog sliding scale Patient will have a Occitan-speaking nurse to help administer insulin upon discharge home. Patient will go on current regimen home. discharge #Hypertension DVT prophylaxis IV access Tolerating cc 1 diet Full code Dispositionto home, today Problem List: 1. Hyperglycemia 2. Type 2 diabetes mellitus Pain Ratin Pain Location: NA Pain Goal: Pain 4 or less Pain Plan: Per pathway Tomorrow's Labs & Rationales: Clyde Hanna 11/28/17 1049: Attending MD Review Statement Attending Statement Attending MD Statement: examined this patient, discuss w/resident/PA/REAL ESTATE APPRAISER, agreed w/resident/PA/REAL ESTATE APPRAISER, discussed with family, reviewed EMR data (avail), discussed with nursing, discussed with case mgmt, reviewed images, amended to note Attending Assessment/Plan: Patient newly daignosised DM. Endocrinology cosnulted and recommend insulin therapy. Diabetes education and counselling given. Advised dietary and lifestyle modifications. Follow up with endocrinology in 1-2 weeks of discharge.
--- NOTE | 2017-11-28 08:34 | PN- Student ---
Subjective Subjective: HPI: 47 y/o male with a history of Hypertension, Type 2 Diabetes Mellitus presented with increasing weakness/lightheadedness and fatigue, and polyuria/polydipsia x 1 week. Patient found to have serum glucose greater than 1000mg/dL, osmolality of >320mOsm/kg, negative acetone, and mild anion gap. Weight has decreased 27lbs, from 225lbs to 198lbs in one week. Patient was admitted for management of hyperosmolar hyperglycemic syndrome. Patient was observed at bedside by both myself and Dr. Pabon. Patient offers no complaints at this time. Denies fevers, chills, nightsweats, and fatigue. Educated the patient on the importance of adherence to his medications and glucose monitoring at home. Denies chest pain, difficulty breathing, abdominal pain, and urinary symptoms. Current blood sugar level is 218 and Osmolality is normalizing, currently 302. Hemoglobin A1c is 10.1. Objective Objective: Vitals: Temp: 98.0F; Oral BP: 102/71mmHg HR: 71bpm RR: 18 br/min O2: 98% on Room air General: Patient was alert, cooperative, and in no acute distress throughout the examination. Upon general inspection, there was no erythema, ecchymoses, or signs of trauma. No central or peripheral edema noted. HEENT: Normocephalic. PERRLA. No tracheal deviation noted Lungs: Clear to ausculatation by anterior and lateral approaches, bilaterally. Heart: Normal heart sounds heard with the diaphragm in the Aortic, Pulmonic, Erbs, Tricuspid, and Mitral areas. No murmurs, rubs, or gallops noted. No edema noted. Abdomen: Upon visual inspection, no signs of distention or trauma. Normoactive bowel sounds heard in all four quadrants with the diaphragm with sounds occuring every 5 seconds. Abdomen non tender upon palpation. Results Results: Laboratory Tests 11/28/17 0814: Anion Gap 11, Estimated GFR > 60, BUN/Creatinine Ratio 14.3, Serum Osmolality 302 H 11/27/17 0620: Anion Gap 12, Estimated GFR > 60, BUN/Creatinine Ratio 17.1, Serum Osmolality 314 H, CBC w Diff NO MAN DIFF REQ, RBC 4.82, MCV 81.3, MCH 27.1, MCHC 33.4, RDW 13.6, MPV 9.8, Gran % 57.2, Lymphocytes % 37.4, Monocytes % 3.5, Eosinophils % 1.3, Basophils % 0.6, Absolute Granulocytes 5.2, Absolute Lymphocytes 3.4, Absolute Monocytes 0.3, Absolute Eosinophils 0.1, Absolute Basophils 0.1 11/26/17 2301: Anion Gap 12, Estimated GFR > 60, BUN/Creatinine Ratio 20.0, Glucose 303 H, Serum Osmolality 311 H 11/26/17 1546: Lactic Acid 1.7 11/26/17 1546: Anion Gap 16, Estimated GFR > 60, BUN/Creatinine Ratio 17.8, Glucose 579 *H, Serum Osmolality 335 H 11/26/17 1242: Bicarbonate Actual 26, Mixed VBG pH 7.34, Mixed VBG pCO2 49, Mixed VBG O2 Saturation 44, Carboxyhemoglobin 1.1 L, O2 Concentration % RA, Phlebotomy Draw Site LAC 11/26/17 1241: Serum Osmolality Cancelled, Acetone Level Cancelled 11/26/17 1241: Anion Gap 21 H, Estimated GFR > 60, BUN/Creatinine Ratio 17.3, Glucose 1221 *H, Hemoglobin A1c 10.1 H, Serum Osmolality 353 H, Lactic Acid 4.4 H, Calcium 10.4 H, Total Bilirubin 0.5, AST 21, ALT 47, Alkaline Phosphatase 202 H, Troponin I < 0.01, Total Protein 7.6, Albumin 4.5, Globulin 3.1, Albumin/ Globulin Ratio 1.5, Acetone Level NEGATIVE, Urine Color YEL, Urine Clarity CLEAR , Urine pH 6.0, Ur Specific [place] <= 1.005, Urine Protein NEG, Urine Ketones NEG, Urine Nitrite NEG, Urine Bilirubin NEG, Urine Urobilinogen 0.2, Ur Leukocyte Esterase NEG, Ur Microscopic EXAM NOT REQUIRED, Urine Hemoglobin NEG, Urine Glucose >=1000 H 11/26/17 1221: CBC w Diff NO MAN DIFF REQ, RBC 5.65, MCV 83.8, MCH 27.0, MCHC 32.2 L, RDW 13.8 , MPV 10.2, Gran % 84.8 H, Lymphocytes % 13.2 L, Monocytes % 1.8, Eosinophils % 0.2, Basophils % 0, Absolute Granulocytes 10.2 H, Absolute Lymphocytes 1.6, Absolute Monocytes 0.2, Absolute Eosinophils 0, Absolute Basophils 0 Assessment/Plan Assessment: 47 y/o male with a history of Hypertension, Type 2 Diabetes Mellitus presented with increasing weakness/lightheadedness and fatigue, and polyuria/ polydipsia x 1 week. Patient found to have serum glucose greater than 1000mg/dL, osmolality of >320mOsm/kg, negative acetone, mild anion gap, and was admitted for management of hyperosmolar hyperglycemic syndrome. Plan: Hyperosmolar Hyperglycemic Syndrome (HHS) Fluid resuscitation - IVF: 7L infused 11/26/17; Currently on PO fluids Per Endocrinology consult: Metformin 1000mg BID Levemir 20 units BID SC Novolog sliding scale Continue K-Dur 40mEq PO BID; Potassium currently 4.0mmol/L; Continue monitoring electrolytes Continue monitoring Glucose, and Serum Osmolality levels Type 2 Diabetes Mellitus See plan for sugar control with HHS. Will likely need continuation and teaching as outpatient Continue Lipitor 10mg PO QD for Metabolic Derangement Hypertension Continue Norvasc 5mg PO QD and Losartan 50mg PO QD DVT Prophylaxis Heparin 5000 units Q8hr SC Anticipated discharge today
[2017-11-28] MEDS ORDERED: NOVOLOG100 UNIT/2 SC ×2 (09:05→09:51)
[2017-11-28] MEDS ORDERED: METFORMIN HCL1000 M1 PO ×2 (09:05→09:51)
[2017-11-28] MEDS ORDERED: LEVEMIR100 UNIT/1 SC ×2 (09:05→09:51)
--- NOTE | 2017-11-28 09:05 | Discharge Summary ---
Visit Information Visit Dates Admission Date: 11/26/17 Discharge Date: 11/28/17 Hospital Course Course Attending Physician: Clyde Pierre MD Primary Care Physician: Segundo Olson APRN Other Care Providers: Dr Marley, Endocrinology Consulting Request: Consulting Specialty: Endocrinology Consulting Physician: Donell Reason for Consult: [facility] Hospital Course: Mr. Neena Davis is a 47yo M w/ PMH of HTN, [id number] presented w/ CC of increasing weakness/lightheadedness and fatigue, and polyuria/polydipsia x 1 week. He presented with a clinical picture of HHS including serum glucose >1000, and also hyperosmolarity >320, and negative acetone, with mild anion gap of 21. No signs of DKA/confusion/acute distress. His sinus tachycardia might be from severe dehydration, and leukocytosis/thrombocytosis could be from hemiconcentration On admission, Vitals: Stable afebrile, tachycardia 125->107m RR 18, BP 140/87, 95% room air -CBC: Mild leukocytosis 12.1, H/H stable, PLT 417, -BMP: Mild hyponatremia 133, glucose 1221, serum osmole 353, lactic acid 4.4, calcium 10.4, alk phos 202 -UA/Microbiology: Unremarkable except urine glucose >1000 -EKG: Sinus tachycardia w/o significant ST-T abnormalities. -Last Echo: none in our system -Interventions in ER: NS bolus x 3, Novolin R 10U x 1 subQ He was admitted to general medicine, he received 4 more liters of normal saline. Endocrinology saw him, and initially switched his insulin to Levemir 15 units twice daily as well as Novolin sliding scale. His serum osmolality decreased from the 350s down to the low 300s. Patient denied any more urinary symptoms, tolerated p.o. fluids, tolerated p.o. feeding and had no more nausea or vomiting. Patient's insulin regimen was further increased to 20 units Levemir twice daily and Novolin sliding scale, and he was also started on metformin 1000 mg twice daily. Patient's A1c was drawn. Patient was informed that since his A1c was 10.1, he would need to go home on insulin. Fingersticks decreased from the 1000s to the 500s to the 300s to eventually the low 200s. Patient verbalized understanding, and he was set up with a home health nurse that speaks [place] who would help him administer insulin. He verbalized understanding of the plan, and was given strict return precautions. Will follow up with his primary, and he will also follow-up with endocrinology within 1-2 weeks. His course was without complications. Allergies: Coded Allergies: No Known Allergies (11/26/17) Disposition Summary Disposition Principal Diagnosis: #HHS #Type 2 diabetes mellitus #Hypertension Additional Diagnosis: As above Discharge Disposition: home health services Discharge Instructions General Discharge Information Code Status: Full Code Patient's Diet: Diabetic diet Patient's Activity: As tolerated Follow-Up Instructions/Appts: - Please follow up with your manager cardiac cath within 1-2 weeks of discharge. - Please follow up with your primary care physician within 1-2 weeks of discharge. Inform your primary care physician of this admission to [facility]. - Continue your current medications per discharge instructions. - Please watch for these problems: Fever, Chills, Nausea, Vomiting, Shortness of Breath, Productive Cough, Chest Pain/Discomfort, Abdominal Pain, Active Bleeding or Bloody urine/stool. Medications at Discharge Discharge Medications: Stop taking the following medications: Metformin HCl (Metformin HCl) 500 MG TABLET ORAL TWICE DAILY Qty = 180 Continue taking these medications: Amlodipine Besylate (Amlodipine Besylate) 5 MG TABLET 1 Tablet ORAL Every Morning Qty = 90 Comments: Last Taken: 11/28/17 Time: 0800 Atorvastatin Calcium (Atorvastatin Calcium) 10 MG TABLET 1 Tablet ORAL Every night Qty = 90 Comments: Last Taken: 11/27/17 Time: 2100 Losartan Potassium (Losartan Potassium) 50 MG TABLET 1 Tablet ORAL Every Morning Qty = 90 Comments: Last Taken: 11/28/17 Time: 0800 Hydrochlorothiazide (Hydrochlorothiazide) 12.5 MG TABLET 1 Tablet ORAL DAILY Qty = 90 Comments: Last Taken: 11/28/17 Time: 0800 Start taking the following new medications: Metformin HCl (Metformin HCl) 1,000 MG TABLET 1,000 Milligram ORAL 0800,1700 Qty = 60 No Refills Instructions: . Comments: Last Taken: 11/28/17 Time: 0800 Insulin Aspart (Novolog) 100 UNIT/ML VIAL 0 Units SC 3 TIMES DAILY BEFORE MEALS Qty = 20 No Refills Instructions: . Comments: Before meal glucose Unit 80-150 6 units 151-200 8 units 201-250 10 units 251-300 12 units 301-350 14 units 351-400 16 units >400 18 units and call Last Taken: 11/28/17 Time: 0800 Insulin Detemir (Levemir) 100 UNIT/ML VIAL 20 Units SC TWICE DAILY Qty = 10 No Refills Instructions: . Comments: Last Taken: 11/28/17 Time: 0800 Copies To: Segundo Olson APRN Attending MD Review Statement Documenting Attending: Clyde Pierre MD Other Findings: Patient newly daignosed DM. Endocrinology cosnulted and recommend insulin therapy. Diabetes education and counselling given. Advised dietary and lifestyle modifications. Follow up with endocrinology in 1-2 weeks of discharge.
--- NOTE | 2017-11-28 09:08 | Patient Discharge Instructions ---
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 Marley within 1-2 weeks of discharge. - Please follow up with your primary care physician within 1-2 weeks of discharge. Inform your primary care physician of this admission to [facility]. - Continue your current medications per discharge instructions. - Please watch for these problems: Fever, Chills, Nausea, Vomiting, Shortness of Breath, Productive Cough, Chest Pain/Discomfort, Abdominal Pain, Active Bleeding or Bloody urine/stool. Diet Continue normal diet: Yes Recommended Diet: Diabetic Activity Full Activity/No Limits: Yes Acute Coronary Syndrome Inclusion Criteria At DC or during hospital stay patient has or had the following: ACS DIAGNOSIS No Discharge Core Measures Meds if any: Prescribed or Continued at Discharge Meds if any: NOT Prescribed or Continued at Discharge Congestive Heart Failure Inclusion Criteria At DC or during hospital stay patient has or had the following: CHF DIAGNOSIS No Discharge Core Measures Meds if any: Prescribed or Continued at Discharge Meds if any: NOT Prescribed or Continued at Discharge Cerebrovascular accident Inclusion Criteria At DC or during hospital stay patient has or had the following: CVA/TIA Diagnosis No Discharge Core Measures Meds if any: Prescribed or Continued at Discharge Meds if any: NOT Prescribed or Continued at Discharge Venous thromboembolism Inclusion Criteria VTE Diagnosis No VTE Type NONE VTE Confirmed by (Test) NONE Discharge Core Measures - Per Current guidelines, there needs to be overlap - treatment for the first 5 days of Warfarin therapy. - If discharged on Warfarin prior to 5 days of - overlap therapy, the patient will need to be - assessed for post discharge needs including - *Post discharge parental anticoagulation - *Warfarin and/or parental anticoagulation education - *Follow up date to check INR post discharge At least 5 days overlap therapy as Inpatient No Meds if any: Prescribed or Continued at Discharge Note: Overlap Therapy is Warfarin and Anticoagulant Meds if any: NOT Prescribed or Continued at Discharge
--- NOTE | 2017-11-28 09:44 | PN- Diabetes ---
Assessment/Plan Diabetes Assessment: 47yo M w/ PMH significant for HTN and diabetes type 2. He was on metformin 500mg twice a day, presented w/ CC of increasing weakness/lightheadedness and fatigue , and polyuria/polydipsia x 1 week. He was admitted for hyperosmolar hyperglycemic state. His repeat HbA1c was 10.1%. After he was treated with IVF and insulin, his glucose levels were improving. He was started on Levemir 15 units twice a day, metformin 1000 mg twice a day, Novolog coverage before meals and Novolog coverage at bedtime. Before Each Meal: Bolus Insulin: Novolog < 80 mg/dl: no coverage 80-100 mg/dl: 6 units 101-120 mg/dl: 6 units 121-150 mg/dl: 6 units 151-200 mg/dl: 8 units 201-250 mg/dl: 10 units 251-300 mg/dl: 12 units 301-350 mg/dl: 14 units 351-400 mg/dl: 16 units > 400 mg/dl: 18 units His FSGs were 321, 285, 241 and 218. Plan: 1. further increase Levemir to 20 units twice a day; 2. continue metformin 1000 mg twice a day; 3. continue the current Novolog coverage before meals and Novolog coverage at bedtime; 4. diet control; 5. glucometer teaching and insulin injection teaching; 6. monitor FSGs. will follow Subjective Subjective: He feels better this morning. Objective Last 24 Hrs of Vital Signs/I&O Vital Signs Date Time Temp Pulse Resp B/P B/P Pulse O2 O2 Flow FiO2 Mean Ox Delivery Rate 11/28 0701 98.0 71 18 102/71 98 11/27 2123 98.2 97 18 110/80 99 Room Air 11/27 1449 98.2 105 18 114/74 98 Room Air Intake & Output 11/28 1600 11/28 0800 11/28 0000 Intake Total 240 900 Output Total Balance 240 900 Intake, Oral 240 900 Findings Pertinent Lab/Iván Results: Laboratory Tests 11/28 0814 Chemistry Sodium (137 - 145 mmol/L) 139 Potassium (3.5 - 5.1 mmol/L) 4.7 Chloride (98 - 107 mmol/L) 102 Carbon Dioxide (22 - 30 mmol/L) 26 Anion Gap (5 - 16) 11 BUN (9 - 20 mg/dL) 10 Creatinine (0.7 - 1.2 mg/dL) 0.7 Estimated GFR (>60 ml/min) > 60 BUN/Creatinine Ratio (7 - 25 %) 14.3 Serum Osmolality (285 - 295 MOSM/KG) 302 H
== END 2017-11-28 11:19 | disposition home health service (06) | DRG 420 ==
LOC: ERH 12:12 → ERHI 13:55 → 2NB 13:55 → EDBEDREQ 14:36 → CMPBEDREQ 14:44 → ENRESERV 17:19 → ENTRNSPT 18:13 → EDTRNSPTSTS 18:15 → EDTRNSPT 18:15 → CMPTRNSPT 18:35 → 2NB 18:40 → ENPENDDIS 11-28 10:08 → 2NB 11-28 11:19
PROVIDERS: Physician Assistant Medical
DX: E11.00 Type 2 diabetes mellitus with hyperosmolarity without nonketotic hyperglycemic-hyperosmolar coma (NKHHC) (principal); Z79.84 Long term (current) use of oral hypoglycemic drugs; E87.2 Acidosis; E86.0 Dehydration; D69.6 Thrombocytopenia, unspecified; I10 Essential (primary) hypertension
CPT/HCPCS: 2NBP; 36592; 81003; 82436; 93005; 93010; J1644; J1815; J2405